=== PATIENT | female | born 1950 | race Caucasian/White ===

== ENCOUNTER 2019-07-04 21:02 | Observation (INO) ==
--- NOTE | 2019-07-04 21:04 | Emergency Department Note ---
Disposition Clinical Impression: Acute diverticulitis Disposition: Admitted As Inpatient Condition: Fair Referrals: Doris Moran, GROUTMAN [Primary Care Provider] - Forms: ED Satisfaction Letter Time of Disposition: 23:07 Nausea/Vomiting/Diarrhea HPI - General Chief complaint: ED Nausea/Vomiting/Diarrhea Stated complaint: n/v Time Seen by Provider: 07/04/19 21:04 Source: patient Mode of arrival: ambulatory Limitations: no limitations Nursing Notes Reviewed: Yes Vital Signs Reviewed: Yes - History of Present Illness HPI Narrative: 68-year-old female presents emergency room his had some upper respiratory tract infection was placed on antibiotic doxycycline is currently still taking at this time but is now developing severe lower abdominal pain and cramping down the left lower quadrant denies any black tarry or melanotic stools denies prior history of diverticular disease denies anything makes it better or anything makes it worse she is having blood in her urine she denies though any fever chills joint aches patient states the pains got worse here in the past couple of hours to the point where she is completely uncomfortable presents here to the emergency room. She has a blurred vision double vision loss vision chest pain chest pressure palpitations she states her cough and congestion which she was treated for earlier seems to be doing better she has numbness tingling weakness she denies though anything makes her feel better or anything makes her feel worse she states that she has no appetite she has got some malaise states that they just does not taste good in general patient eyes any additional complaints with complete entire review systems Pt Subjective Complaint: nausea, vomiting, abdominal pain Onset (ago): day(s) Description of emesis: food contents Associated Abdominal Pain: Yes If pain, Location of pain: LLQ Severity: severe Severity scale (1-10): 8 Quality: cramping, stabbing Consistency: constant Improves with: nothing Worsens with: nonthing Context: recent antibiotic use Associated symptoms: Reports: cough, loss of appetite, nausea/vomiting, weakness. Denies: myalgias, chest pain, diaphoresis, fever/chills, malaise, rash, dysuria, shortness of breath, syncope - Related Data Home Medications Medication Instructions Recorded Confirmed Albuterol Sulfate [Ventolin Hfa] 2 puff IH Q4H PRN 03/17/16 07/04/19 Cetirizine HCl [Zyrtec] 10 mg PO DAILY 03/17/16 07/04/19 Ergocalciferol (VITAMIN D2) 50,000 unit PO 2XW 03/17/16 07/04/19 [Vitamin D2 (50,000 UNIT)] Gemfibrozil [Lopid] 600 mg PO DAILY 03/17/16 07/04/19 Insulin ASPART [Novolog Flexpen] 45 unit SQ TIDWM 03/17/16 07/04/19 Levothyroxine [Synthroid] 125 mcg PO QAM 03/17/16 07/04/19 Losartan [Cozaar] 25 mg PO DAILY 03/17/16 07/04/19 Aspirin Enteric Coated [Aspirin EC] 81 mg PO DAILY 06/16/18 07/04/19 Folic Acid 1 mg PO DAILY 06/16/18 07/04/19 [place]-3/Dha/Epa/Fish Oil [Fish Oil 2 cap PO BID 06/16/18 07/04/19 1,000 mg Softgel] Previous Rx's Medication Instructions Recorded Acetaminophen [Pain Relief] 500 mg PO TID PRN #16 tablet 06/16/18 Allergies Allergy/AdvReac Type Severity Reaction Status Date / Time Penicillins [PCN] Allergy Hives Verified 01/22/16 20:05 Sulfa (Sulfonamide Allergy Hives Verified 01/22/16 20:05 Antibiotics) venom-honey bee Allergy Anaphylaxis Verified 01/22/16 20:05 [bee venom (honey bee)] All systems ED: reviewed and negative except as stated. Review of Systems: As Per HPI Constitutional: Denies: fever, chills, weakness Eyes: Denies: eye pain, eye discharge ENT ED: Denies: ear pain, throat pain Cardiovascular: Denies: chest pain, palpitations Respiratory: Denies: cough, dyspnea, wheezes Gastrointestinal: Reports: abdominal pain, nausea, vomiting Genitourinary: Reports: hematuria (?). Denies: urgency, dysuria, frequency Musculoskeletal: Denies: back pain, neck pain Integumentary: Denies: rash, abrasion Neurological: Denies: headache, weakness Psychiatric: Denies: anxiety, depression Endocrine: Denies: fatigue Hematological/Lymphatic: Denies: easy bleeding Allergic/Immunologic: Denies: facial swelling Past Medical History - Past Medical History Attestation: Yes The following information was validated with the patient. 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 - Social History Smoking Status: Current every day smoker Smokeless Tobacco Status: No Alcohol use: Reports: none Drug use: Reports: none Physical Exam - General Limitations: no limitations General appearance: alert, in no apparent distress, obese - Head Head exam: atraumatic, normocephalic, normal inspection - Eye Eye exam: Present: normal appearance, PERRL, EOMI - ENT ENT exam: normal exam, normal oropharynx, mucous membranes moist, TM's normal bilaterally, normal external ear exam - Neck Neck exam: Present: normal inspection, full ROM, trachea midline - Chest Chest inspection: Present: normal inspection, symmetric chest wall rise - Respiratory Respiratory exam: Present: normal lung sounds bilaterally - Cardiovascular Cardiovascular exam: Present: regular rate, normal rhythm, normal heart sounds - Abdominal Exam Abdominal exam: Present: soft, tenderness, distention, guarding, diminished bowel sounds. Absent: mass, pulsatile mass - Extremities Exam Extremities exam: Present: normal inspection, full ROM, normal capillary refill. Absent: tenderness, pedal edema, joint swelling, calf tenderness - Expanded Lower Extremity Exam Gait: observed and normal - Back Exam Back exam: Present: normal inspection, full ROM. Absent: muscle spasm - Neurological Exam Neurological exam: Present: alert, oriented X3, CN II-XII intact, normal gait - Psychiatric Psychiatric exam: Present: normal affect, normal mood - Skin Skin exam: Present: warm, dry, intact, normal color Course Course Narrative: Patient was immediately seen and evaluated examinations performed patient complaining of lower quadrant abdominal pain urinalysis and drug screen was obtained patient appears to be markedly uncomfortable. Patient was taken over to CAT scan upon return from CAT scan revealed film appears to be consistent with acute diverticulitis as a result she was started on antibiotics and fluids which did seem to help somewhat ease her pain and discomfort as result she was given some Zofran to control nausea and then have her admitted to the service of Dr. Langley when it showed that there was an uncomplicated diverticular disease patient is resting comfortably [facility] room. 49 Vital Signs Temperature 97.9 F 07/04/19 21:04 Pulse Rate 914 07/04/19 21:04 Respiratory Rate 18 07/04/19 21:04 Blood Pressure 109/70 07/04/19 21:04 O2 Sat by Pulse Oximetry 96 07/04/19 21:04 Temperature 97.9 F 07/04/19 21:04 Pulse Rate 60 07/04/19 22:34 Respiratory Rate 18 07/04/19 22:34 Blood Pressure 121/59 07/04/19 22:34 O2 Sat by Pulse Oximetry 94 07/04/19 22:34 Oxygen Delivery Oxygen Delivery Room Air Nausea/Vomiting/Diarrhea - MDM Narrative Medical decision making narrative: Diverticulitis versus diverticulosis versus versus: Mass - Differential Diagnosis Likely: gastroenteritis, dehydration - Medical Records Medical records reviewed: Yes I reviewed the patient's medical records. - Lab Data Lab results reviewed: Yes I reviewed the patient's lab results. Result diagrams: 07/04/19 21:37 07/04/19 21:37 Lab Results 07/04/19 07/04/19 07/04/19 Range/Units 21:37 21:37 21:37 WBC 16.4 H (4.3-11.1) K/mcL RBC 4.89 (3.82-4.97) M/mcL Hgb 15.2 (11.5-15.4) g/dL Hct 44.1 (35.3-44.9) % MCV 90.2 (83.0-100.0) fL MCH 31.1 (28.0-33.3) pg MCHC 34.5 (31.6-35.5) g/dL RDW 13.7 (11.5-14.5) % Plt Count 408 H (140-400) K/mcL MPV 11.9 (9.4-12.4) fL Immature Gran % 0.5 (0-4) % Seg Neutrophils % 43.4 % Lymphocytes % 48.0 % Monocytes % 4.8 % Eosinophils % 2.1 % Basophils % 1.2 % Neutrophils # 7.1 (1.6-8.9) K/mcL Lymphocytes # 7.9 H (0.6-4.6) K/mcL Monocytes # 0.8 (0.0-1.3) K/mcL Eosinophils # 0.3 (0.0-0.6) K/mcL Basophils # 0.2 (0.0-0.2) K/mcL Sodium 132 L (136-145) mEq/L Potassium 3.5 (3.5-5.1) mEq/L Chloride 99 (98-107) mEq/L Carbon Dioxide 20 L (23-29) mEq/L BUN 31 H (8-23) mg/dL Creatinine 1.09 (0.60-1.20) mg/dL Est GFR ( Amer) > 60 (> 60) Est GFR (Non-Af Amer) 50 L (> 60) BUN/Creatinine Ratio 28 H (6-26) Glucose 125 H (70-105) mg/dL Calculated Osmolality 282 (280-300) Lactic Acid (0.5-2.2) mmol/L Calcium 9.0 (8.6-10.3) mg/dL Total Bilirubin 0.5 (0.3-1.0) mg/dL AST 20 (13-39) Units/L ALT 16 (7-52) Units/L Alkaline Phosphatase 56 (34-104) Units/L Serum Total Protein 7.6 (6.4-8.9) g/dL Albumin 4.5 (3.5-5.7) g/dL Globulin 3.1 (2.4-3.5) g/dL Albumin/Globulin Ratio 1.5 (1.1-2.2) Urine Color Yellow (Yellow) Urine Clarity Slightly Cloudy A (Clear) Urine pH 5.5 (5.0-8.0) pH Units Ur Specific [place] 1.020 (1.010-1.025) Urine Protein Negative (Neg-Trace) mg/dL Urine Glucose (UA) 100 H (Normal) mg/dL Urine Ketones Negative (Negative) mg/dL Urine Blood Trace-intact H (Negative) Urine Nitrite Negative (Negative) Urine Bilirubin Small H (Negative) Urine Urobilinogen Normal (Normal) mg/dL Ur Leukocyte Esterase Negative (Negative) Ur Squamous Epith Cells Moderate H (None-Few) per lpf Ur Culture Indicated? NO (NO) 07/04/19 Range/Units 21:37 WBC (4.3-11.1) K/mcL RBC (3.82-4.97) M/mcL Hgb (11.5-15.4) g/dL Hct (35.3-44.9) % MCV (83.0-100.0) fL MCH (28.0-33.3) pg MCHC (31.6-35.5) g/dL RDW (11.5-14.5) % Plt Count (140-400) K/mcL MPV (9.4-12.4) fL Immature Gran % (0-4) % Seg Neutrophils % % Lymphocytes % % Monocytes % % Eosinophils % % Basophils % % Neutrophils # (1.6-8.9) K/mcL Lymphocytes # (0.6-4.6) K/mcL Monocytes # (0.0-1.3) K/mcL Eosinophils # (0.0-0.6) K/mcL Basophils # (0.0-0.2) K/mcL Sodium (136-145) mEq/L Potassium (3.5-5.1) mEq/L Chloride (98-107) mEq/L Carbon Dioxide (23-29) mEq/L BUN (8-23) mg/dL Creatinine (0.60-1.20) mg/dL Est GFR ( Amer) (> 60) Est GFR (Non-Af Amer) (> 60) BUN/Creatinine Ratio (6-26) Glucose (70-105) mg/dL Calculated Osmolality (280-300) Lactic Acid 2.0 (0.5-2.2) mmol/L Calcium (8.6-10.3) mg/dL Total Bilirubin (0.3-1.0) mg/dL AST (13-39) Units/L ALT (7-52) Units/L Alkaline Phosphatase (34-104) Units/L Serum Total Protein (6.4-8.9) g/dL Albumin (3.5-5.7) g/dL Globulin (2.4-3.5) g/dL Albumin/Globulin Ratio (1.1-2.2) Urine Color (Yellow) Urine Clarity (Clear) Urine pH (5.0-8.0) pH Units Ur Specific [place] (1.010-1.025) Urine Protein (Neg-Trace) mg/dL Urine Glucose (UA) (Normal) mg/dL Urine Ketones (Negative) mg/dL Urine Blood (Negative) Urine Nitrite (Negative) Urine Bilirubin (Negative) Urine Urobilinogen (Normal) mg/dL Ur Leukocyte Esterase (Negative) Ur Squamous Epith Cells (None-Few) per lpf Ur Culture Indicated? (NO) - Radiology Data Radiology results reviewed: Yes I reviewed the patient's radiology results. ITS Impressions Abdomen/Pelvis CT 07/04/19 22:09 IMPRESSION: Mild mural thickening of the sigmoid colon, with slight surrounding fat stranding, seen superimposed on a background of diverticulosis. Mild segmental colitis and mild uncomplicated diverticulitis are both considered. Moderate diffuse hepatic steatosis. D/ / Isaiah Nevarez MD / Isaiah Nevarez MD Interpreting Provider: Isaiah Nevarez MD Critical Care Time Critical Care Time: No
[2019-07-04] MEDS ORDERED: 0.9 % Sodium Chloride 1,000 ML IVC ONE (21:35)
[2019-07-04] MEDS ORDERED: Ondansetron 4 MG/2 ML VIAL IVP ONE (21:35)
[2019-07-04 21:47] LABS: Basophils # 0.2 K/mcL (0.0-0.2); Basophils % 1.2 %; Eosinophils # 0.3 K/mcL (0.0-0.6); Eosinophils % 2.1 %; Hematocrit 44.1 % (35.3-44.9); Hemoglobin 15.2 g/dL (11.5-15.4); Immature Granulocytes % 0.5 % (0-4); Lymphocytes # 7.9 K/mcL (0.6-4.6); Mean Corpuscular HGB Conc 34.5 g/dL (31.6-35.5); Mean Corpuscular Hemoglobin 31.1 pg (28.0-33.3); Mean Corpuscular Volume 90.2 fL (83.0-100.0); Mean Platelet Volume 11.9 fL (9.4-12.4); Monocytes # 0.8 K/mcL (0.0-1.3); Monocytes % 4.8 %; Neutrophils # 7.1 K/mcL (1.6-8.9); Platelet Count 408 K/mcL (140-400); Red Blood Count 4.89 M/mcL (3.82-4.97); Red Cell Distribution Width 13.7 % (11.5-14.5); Segmented Neutrophils % 43.4 %; White Blood Count 16.4 K/mcL (4.3-11.1)
[2019-07-04 21:50] LABS: Bilirubin,Urine Small (Negative); Blood,Urine Trace-intact (Negative); Clarity,Urine Slightly Cloudy (Clear); Color,Urine Yellow (Yellow); Glucose,Urine (UA) 100 mg/dL (Normal); Ketones,Urine Negative (Negative); Leukocyte Esterase,Urine Negative (Negative); Nitrite,Urine Negative (Negative); PH,Urine 5.5 pH Units (5.0-8.0); Protein,Urine Negative (Neg-Trace); Urobilinogen,Urine Normal (Normal)
[2019-07-04 22:02] LABS: Squamous Epithelial Cell,Urine Moderate per lpf (None-Few)
[2019-07-04] MEDS ORDERED: MetroNIDAZOLE 500 MG/100 ML 500 MG/100 ML BAG IVPB ONE (22:09)
[2019-07-04 22:15] LABS: Alanine Aminotransferase 16 Units/L (7-52); Albumin 4.5 g/dL (3.5-5.7); Albumin/Globulin Ratio 1.5 (1.1-2.2); Alkaline Phosphatase 56 Units/L (34-104); Aspartate Amino Transferase 20 Units/L (13-39); BUN/Creatinine Ratio 28 (6-26); Bilirubin,Total 0.5 mg/dL (0.3-1.0); Blood Urea Nitrogen 31 mg/dL (8-23); Carbon Dioxide 20 mEq/L (23-29); Chloride 99 mEq/L (98-107); Globulin 3.1 g/dL (2.4-3.5); Glucose 125 mg/dL (70-105); Osmolality,Calculated 282 (280-300); Potassium 3.5 mEq/L (3.5-5.1); Sodium 132 mEq/L (136-145); Total Protein 7.6 g/dL (6.4-8.9); eGFR For African Americans > 60 (> 60); eGFR For Non-African Americans 50 (> 60)
[2019-07-04] MEDS ORDERED: 0.9 % Sodium Chloride 1,000 ML IVC SCH (22:15)
[2019-07-05] MEDS ORDERED: Ondansetron 4 MG/2 ML VIAL IVP PRN (00:16)
[2019-07-05] MEDS ORDERED: *HR* HYDROcodone/Acet 5/325 mg TABLET PO PRN (00:16)
[2019-07-05] MEDS ORDERED: Naloxone 0.4 MG/ML INJ IVP PRN (00:16)
[2019-07-05] MEDS ORDERED: *HR* Promethazine 25 MG/ML VIAL IVP PRN (00:16)
[2019-07-05] MEDS ORDERED: D5% in Water 1,000 ML IVC PRN (00:23)
[2019-07-05] MEDS ORDERED: Dextrose Gel 15 GM/37.5 ML TUBE PO PRN ×2 (00:23)
[2019-07-05] MEDS ORDERED: *HR* Dextrose 50 % in Water (Syg) 50 ML SYRINGE IVP PRN (00:23)
[2019-07-05] MEDS: 0.9 % Sodium Chloride 1,000 ML IVC SCH ×2 (01:06→07:37)
[2019-07-05 06:28] LABS: Basophils # 0.1 K/mcL (0.0-0.2); Basophils % 0.6 %; Eosinophils # 0.1 K/mcL (0.0-0.6); Eosinophils % 0.6 %; Hematocrit 39.1 % (35.3-44.9); Hemoglobin 13.3 g/dL (11.5-15.4); Immature Granulocytes % 0.6 % (0-4); Lymphocytes % 25.8 %; Mean Corpuscular Hemoglobin 31.2 pg (28.0-33.3); Mean Corpuscular Volume 91.8 fL (83.0-100.0); Mean Platelet Volume 12.2 fL (9.4-12.4); Monocytes # 0.7 K/mcL (0.0-1.3); Monocytes % 3.5 %; Neutrophils # 13.4 K/mcL (1.6-8.9); Platelet Count 350 K/mcL (140-400); Red Blood Count 4.26 M/mcL (3.82-4.97); Red Cell Distribution Width 13.6 % (11.5-14.5); Segmented Neutrophils % 68.9 %; White Blood Count 19.5 K/mcL (4.3-11.1)
[2019-07-05 06:42] LABS: BUN/Creatinine Ratio 26 (6-26); Blood Urea Nitrogen 25 mg/dL (8-23); Calcium 7.7 mg/dL (8.6-10.3); Carbon Dioxide 20 mEq/L (23-29); Chloride 102 mEq/L (98-107); Glucose 249 mg/dL (70-105); Osmolality,Calculated 289 (280-300); Sodium 133 mEq/L (136-145); eGFR For African Americans > 60 (> 60); eGFR For Non-African Americans 56 (> 60)
[2019-07-05] MEDS ORDERED: Ergocalciferol (VIT D2) 50,000 UNIT (1.25MG) CAP PO SCH (09:00)
[2019-07-05] MEDS: Folic Acid 1 MG TABLET PO SCH (09:52)
[2019-07-05] MEDS: Aspirin Enteric Coated 81 MG Tablet PO SCH (09:52)
[2019-07-05] MEDS: Loratadine 10 MG TABLET PO SCH (09:52)
[2019-07-05] MEDS: Cholecalciferol (D-3) 1,000 UNIT (25MCG) TABLET PO SCH (10:06)
[2019-07-05] MEDS ORDERED: *HR* Dextrose 50 % in Water (Vial) 50 ML VIAL IVP PRN (12:45)
--- NOTE | 2019-07-05 15:59 | Internal Med History&Physical ---
Date of Encounter: 07/05/19 Time of Encounter: 15:15 Assessment and Plan (1) Acute diverticulitis Current visit: Yes Status: Acute She has been started on IV Cipro and Flagyl through emergency room. Lactobacillus will be added. (2) Hypertension Current visit: Yes Status: Chronic Continue losartan Qualifiers: Hypertension type: essential hypertension Qualified Code(s): I10 - Essential (primary) hypertension (3) DM type 2 (diabetes mellitus, type 2) Current visit: Yes Status: Chronic Check hemoglobin A1c in a.m. Continue Levemir and Accu-Cheks with SSI. Qualifiers: Diabetes mellitus retirement insulin use: with retirement use Diabetes mellitus complication status: without complication Qualified Code(s): E11.9 - Type 2 diabetes mellitus without complications; Z79.4 - moth exterminator (current) use of insulin (4) Hypothyroidism Current visit: Yes Status: Chronic TSH was 1.223 on 05/22/2018. Recheck in a.m. Qualifiers: Hypothyroidism type: unspecified Qualified Code(s): E03.9 - Hypothyroidism, unspecified (5) Hyperlipidemia Current visit: Yes Status: Chronic Continue Lopid. Qualifiers: Hyperlipidemia type: unspecified Qualified Code(s): E78.5 - Hyperlipidemia, unspecified (6) Azotemia Current visit: Yes Status: Acute Suspect due in part to dehydration from vomiting. IV fluids have been ordered and creatinine has decreased to 0.98 today with estimated GFR 56. Continue IV fluids and recheck labs in a.m. Internal Medicine - H&P: HPI Chief complaint: Vomiting, diverticulitis. Admitted From: Emergency Dept Plans for Post Hospital Care: Home History of present illness: Ms. Thomas is a 68 year old female who came to emergency room stating she had 2 episodes of nonbloody vomiting followed by dry heaves onset morning of admission. There was mid and lower abdominal discomfort. She denies diarrhea fevers or chills. When she did not improve she came to emergency room and was found to have evidence of diverticulitis and sigmoid colitis on abdominal CT scan. She was admitted to Medr floor for ongoing care needs. GI history is pertinent for cholecystectomy. She denies disorders of her liver or exocrine pancreas. She reports being treated for respiratory infection approximately 2 weeks ago with doxycycline, steroids, and Tessalon Perles. She reports minimal residual cough. Past Med Surg Social Fam HX - Past Medical History Medical history: asthma, diabetes, GERD, hyperlipidemia, hypertension, thyroid disease Additional medical history: diabetes mellitus. HTN. Hypothyroidism. tobacco dependency Psychiatric history: no psych history - Past Surgical History Surgical History: cholecystectomy, hysterectomy Additional surgical history: bladder tuck. NILESH LT AND RT ROTATOR CUFF REPAIR. NILESH CARAPL TUNNEL RELEASE. CYST REMOVED RT CHEEK AND BACK OF HEAD - Social History Smoking Status: Current every day smoker Smokeless Tobacco Status: No Alcohol use: none Drug use: none - Family History Father Living Status: Cause of : STROKE Hx Family Endocrine Disorder: Yes (DIABETES) Mother Living Status: Cause of : STROKE Internal Medicine - H&P: Meds Albuterol Sulfate [Ventolin Hfa] 2 puff IH Q4H PRN 03/17/16 [History] Cetirizine HCl [Zyrtec] 10 mg PO DAILY 03/17/16 [History] Ergocalciferol (VITAMIN D2) [Vitamin D2 (50,000 UNIT)] 50,000 unit PO 2XW 03/17/16 [History] Gemfibrozil [Lopid] 600 mg PO DAILY 03/17/16 [History] Insulin ASPART [Novolog Flexpen] 45 unit SQ TIDWM 03/17/16 [History] Levothyroxine [Synthroid] 125 mcg PO QAM 03/17/16 [History] Losartan [Cozaar] 25 mg PO DAILY 03/17/16 [History] Acetaminophen [Pain Relief] 500 mg PO TID PRN #16 tablet 06/16/18 [Rx] Aspirin Enteric Coated [Aspirin EC] 81 mg PO DAILY 06/16/18 [History] Folic Acid 1 mg PO DAILY 06/16/18 [History] [place]-3/Dha/Epa/Fish Oil [Fish Oil 1,000 mg Softgel] 2 cap PO BID 06/16/18 [ History] Insulin DETEMIR [Levemir] 60 unit SQ HS 07/05/19 [History] Allergy/AdvReac Type Severity Reaction Status Date / Time Penicillins [PCN] Allergy Hives Verified 01/22/16 20:05 Sulfa (Sulfonamide Allergy Hives Verified 01/22/16 20:05 Antibiotics) venom-honey bee Allergy Anaphylaxis Verified 01/22/16 20:05 [bee venom (honey bee)] All Systems PM: A 10-system review of systems was performed and is negative for pertinent findings except as documented above in the HPI. Review of systems: Gen.: She states her weight has been stable for several months Cardiovascular: She has history of hypertension but denies [place] heart failure angina DVT or pulmonary embolus Respiratory: She smoked since age 34 up to 2 packs per day. PFTs 06/02/2018 showed FVC 81% predicted, FEV1 90% predicted, FEV1/FVC 84%, MVV 45% predicted, RV 114% predicted, and DLCO (corrected) 84% predicted. There was no significant change in FEV1 or FVC postbronchodilator. She claims a diagnosis of asthma. GI: As per history of present illness : She denies hematuria dysuria or kidney stones Endocrine: She was diagnosed with DM 2 approximately age 47. She has hypothyroidism and hyperlipidemia Hematology/oncology: She denies blood disorders cancers or anemia Psychiatric: She denies anxiety depression or other mental health issues [place] skeletal: She reports arthritis pains. She denies gout or other bone joint or muscle disorders. - Constitutional Vitals: Temp Pulse Resp BP Pulse Ox 98.6 F 63 16 130/70 98 07/05/19 14:20 07/05/19 14:20 07/05/19 14:20 07/05/19 14:20 07/05/19 14:20 Exam: Gen.: She is a well-developed well-nourished female resting comfortably in bed who appears in no acute distress HEENT: Head is atraumatic and normal cephalic. Eyes: EOMI. There is no scleral icterus. Mouth: Mucosa is moist. Neck: Supple and nontender. There is no thyromegaly or adenopathy noted. Heart: Regular without murmurs gallops or ectopics Lungs: No wheezes or crackles are heard. Abdomen: Bowel sounds are present but diminished. No masses or guarding are noted. She claims there is mild "soreness" to light palpation. Extremities: There is no cyanosis edema or clubbing noted. Dorsalis pedis and posterior tibial pulses are trace to 1+ palpable bilaterally. Neurologic: Mental status: She is talkative and a good historian. Cranial nerves: Smile is symmetric. Forehead wrinkles bilaterally. Tongue protrudes midline. EOMI. Motor: There is no pronator drift. Cerebellar: Finger to nose is intact bilaterally. Skin: Warm and dry Internal Med - H&P Results - Labs CBC & Chem 7: 07/05/19 05:42 07/05/19 05:42 Labs: Short CBC 07/04/19 07/05/19 Range/Units 21:37 05:42 WBC 16.4 H 19.5 H (4.3-11.1) K/mcL Hgb 15.2 13.3 D (11.5-15.4) g/dL Hct 44.1 39.1 (35.3-44.9) % Plt Count 408 H 350 (140-400) K/mcL Neutrophils # 7.1 13.4 H (1.6-8.9) K/mcL BMP 07/04/19 07/05/19 21:37 05:42 Sodium 132 L 133 L Potassium 3.5 4.0 Chloride 99 102 Carbon Dioxide 20 L 20 L BUN 31 H 25 H Creatinine 1.09 0.98 Glucose 125 H 249 H Calcium 9.0 7.7 L Liver Function 07/04/19 Range/Units 21:37 Total Bilirubin 0.5 (0.3-1.0) mg/dL AST 20 (13-39) Units/L ALT 16 (7-52) Units/L Alkaline Phosphatase 56 (34-104) Units/L Albumin 4.5 (3.5-5.7) g/dL Urine 07/04/19 Range/Units 21:37 Urine Color Yellow (Yellow) Urine Clarity Slightly Cloudy A (Clear) Urine pH 5.5 (5.0-8.0) pH Units Ur Specific [place] 1.020 (1.010-1.025) Urine Protein Negative (Neg-Trace) mg/dL Urine Glucose (UA) 100 H (Normal) mg/dL - Impressions ITS Impressions Abdomen/Pelvis CT 07/04/19 22:09 IMPRESSION: Mild mural thickening of the sigmoid colon, with slight surrounding fat stranding, seen superimposed on a background of diverticulosis. Mild segmental colitis and mild uncomplicated diverticulitis are both considered. Moderate diffuse hepatic steatosis. D/ / Isaiah Nevarez MD / Isaiah Nevarez MD Interpreting Provider: Isaiah Nevarez MD
[2019-07-05] MEDS: Insulin LISPRO 300 UNITS/3 ML VIAL SQ SCH ×3 (16:43→20:41)
[2019-07-05] MEDS: 0.9 % Sodium Chloride w KCl 20 MEQ/1,000 ML MLS IVC SCH (16:46)
[2019-07-05] MEDS: Insulin DETEMIR 100 UNIT/ML X5UNITS SQ SCH (20:40)
[2019-07-06 05:21] LABS: Basophils # 0.1 K/mcL (0.0-0.2); Basophils % 0.8 %; Eosinophils # 0.4 K/mcL (0.0-0.6); Hematocrit 36.3 % (35.3-44.9); Hemoglobin 11.9 g/dL (11.5-15.4); Immature Granulocytes % 0.3 % (0-4); Lymphocytes # 5.4 K/mcL (0.6-4.6); Lymphocytes % 45.4 %; Mean Corpuscular HGB Conc 32.8 g/dL (31.6-35.5); Mean Corpuscular Hemoglobin 30.8 pg (28.0-33.3); Mean Platelet Volume 11.9 fL (9.4-12.4); Monocytes # 0.7 K/mcL (0.0-1.3); Platelet Count 281 K/mcL (140-400); Red Blood Count 3.86 M/mcL (3.82-4.97); Red Cell Distribution Width 13.6 % (11.5-14.5); Segmented Neutrophils % 44.5 %; White Blood Count 11.8 K/mcL (4.3-11.1)
[2019-07-06 05:28] LABS: Neutrophils # 5.3 K/mcL (1.6-8.9)
[2019-07-06 05:43] LABS: Alanine Aminotransferase 11 Units/L (7-52); Albumin 3.6 g/dL (3.5-5.7); Albumin/Globulin Ratio 1.5 (1.1-2.2); Alkaline Phosphatase 42 Units/L (34-104); Aspartate Amino Transferase 16 Units/L (13-39); BUN/Creatinine Ratio 16 (6-26); Bilirubin,Total 0.6 mg/dL (0.3-1.0); Blood Urea Nitrogen 15 mg/dL (8-23); Calcium 7.3 mg/dL (8.6-10.3); Carbon Dioxide 22 mEq/L (23-29); Chloride 107 mEq/L (98-107); Globulin 2.4 g/dL (2.4-3.5); Glucose 237 mg/dL (70-105); Magnesium 1.7 mg/dL (1.6-2.6); Osmolality,Calculated 293 (280-300); Phosphorous 1.3 mg/dL (2.7-4.5); Potassium 4.2 mEq/L (3.5-5.1); Sodium 137 mEq/L (136-145); eGFR For African Americans > 60 (> 60); eGFR For Non-African Americans 57 (> 60)
[2019-07-06] MEDS: 0.9 % Sodium Chloride w KCl 20 MEQ/1,000 ML MLS IVC SCH ×2 (06:35→20:52)
[2019-07-06] MEDS: Loratadine 10 MG TABLET PO SCH (09:07)
[2019-07-06] MEDS: Folic Acid 1 MG TABLET PO SCH (09:07)
[2019-07-06] MEDS: Aspirin Enteric Coated 81 MG Tablet PO SCH (09:07)
[2019-07-06] MEDS: Insulin LISPRO 300 UNITS/3 ML VIAL SQ SCH ×4 (09:08→20:51)
[2019-07-06] MEDS: Cholecalciferol (D-3) 1,000 UNIT (25MCG) TABLET PO SCH (09:13)
--- NOTE | 2019-07-06 11:06 | Internal Med Progress Note ---
Date of Encounter: 07/06/19 Time of Encounter: 10:55 - Assessment and plan (1) Acute diverticulitis Current Visit: Yes Status: Acute Assessment and plan: July 06. Continue IV Flagyl and Cipro with lactobacillus. Advance diet. (2) Hypertension Current Visit: Yes Status: Chronic Assessment and plan: July 06. Continue losartan. Qualifiers: Hypertension type: essential hypertension Qualified Code(s): I10 - Essential (primary) hypertension (3) DM type 2 (diabetes mellitus, type 2) Current Visit: Yes Status: Chronic Assessment and plan: July 06. Hemoglobin A1c has been ordered. Qualifiers: Diabetes mellitus penitentiary insulin use: with termite helper use Diabetes mellitus complication status: without complication Qualified Code(s): E11.9 - Type 2 diabetes mellitus without complications; Z79.4 - penitentiary (current) use of insulin (4) Hypothyroidism Current Visit: Yes Status: Chronic Assessment and plan: July 06. TSH significantly elevated at 40.445. She reports she has missed many doses of Synthroid due to forgetting to take it. Qualifiers: Hypothyroidism type: unspecified Qualified Code(s): E03.9 - Hypothyroidism, unspecified (5) Hyperlipidemia Current Visit: Yes Status: Chronic Assessment and plan: July 06. Continue Lopid. Qualifiers: Hyperlipidemia type: unspecified Qualified Code(s): E78.5 - Hyperlipidemia, unspecified (6) Azotemia Current Visit: Yes Status: Acute Assessment and plan: July 06. BUN and creatinine normal at 15 and 0.96 respectively with estimated GFR 57. Continue IV fluids and recheck labs in a.m. (7) Hypophosphatemia Current Visit: Yes Status: Acute Assessment and plan: July 06. Phosphorus level low at 1.3. Suspect due to vomiting. Neutra-Phos will be ordered and labs monitored. (8) Hypocalcemia Current Visit: Yes Status: Acute Assessment and plan: July 06. Calcium level decreased to 7.3 with albumin 3.6. Calcium level was 9.0 on admission with albumin 4.5. Calcium gluconate will be given. Recheck labs in a.m. - Subjective Interval history: July 06. She has no new complaints. She has less abdominal discomfort. - Constitutional Vitals: Temp Pulse Resp BP Pulse Ox 98.1 F 69 20 124/68 97 07/06/19 07:31 07/06/19 07:31 07/06/19 07:31 07/06/19 07:31 07/06/19 07:31 Exam: She is resting comfortably in bed and appears in no acute distress. There is mild left lower quadrant abdominal tenderness to palpation. Bowel sounds are present. Her affect is bright and cheerful. I reviewed her medications and lab results. Internal Medicine: Result - Labs CBC & Chem 7: 07/06/19 04:54 07/06/19 04:54 Labs: Short CBC 07/06/19 Range/Units 04:54 WBC 11.8 H (4.3-11.1) K/mcL Hgb 11.9 (11.5-15.4) g/dL Hct 36.3 (35.3-44.9) % Plt Count 281 (140-400) K/mcL Neutrophils # 5.3 (1.6-8.9) K/mcL BMP 07/06/19 04:54 Sodium 137 Potassium 4.2 Chloride 107 Carbon Dioxide 22 L BUN 15 Creatinine 0.96 Glucose 237 H Calcium 7.3 L Liver Function 07/06/19 Range/Units 04:54 Total Bilirubin 0.6 (0.3-1.0) mg/dL AST 16 (13-39) Units/L ALT 11 (7-52) Units/L Alkaline Phosphatase 42 (34-104) Units/L Albumin 3.6 (3.5-5.7) g/dL Consult Discharge Plan - Plan Referrals: Doris Moran, SHE[facility]OCKER [Primary Care Provider] - 1 week
[2019-07-06] MEDS: MetroNIDAZOLE 500 MG/100 ML 500 MG/100 ML BAG IVPB SCH (15:39)
[2019-07-06 17:38] LABS: Estimated Average Glucose 229 mg/dl
[2019-07-06] MEDS ORDERED: Mag Hydrox/Al Hydrox/Simeth 30 ML UDC PO PRN (20:41)
[2019-07-06] MEDS: Insulin DETEMIR 100 UNIT/ML X5UNITS SQ SCH (20:51)
[2019-07-07] MEDS: MetroNIDAZOLE 500 MG/100 ML 500 MG/100 ML BAG IVPB SCH ×2 (00:32→08:56)
[2019-07-07 07:09] VITALS: BP 103/62
[2019-07-07 07:38] LABS: Basophils # 0.1 K/mcL (0.0-0.2); Basophils % 0.8 %; Eosinophils # 0.5 K/mcL (0.0-0.6); Eosinophils % 4.3 %; Hematocrit 34.7 % (35.3-44.9); Hemoglobin 11.4 g/dL (11.5-15.4); Immature Granulocytes % 0.4 % (0-4); Lymphocytes # 5.5 K/mcL (0.6-4.6); Lymphocytes % 50.3 %; Mean Corpuscular HGB Conc 32.9 g/dL (31.6-35.5); Mean Corpuscular Hemoglobin 30.8 pg (28.0-33.3); Mean Corpuscular Volume 93.8 fL (83.0-100.0); Mean Platelet Volume 11.6 fL (9.4-12.4); Monocytes # 0.7 K/mcL (0.0-1.3); Monocytes % 6.4 %; Neutrophils # 4.2 K/mcL (1.6-8.9); Platelet Count 273 K/mcL (140-400); Red Cell Distribution Width 13.6 % (11.5-14.5); Segmented Neutrophils % 37.8 %
[2019-07-07 08:03] LABS: Alanine Aminotransferase 11 Units/L (7-52); Albumin 3.7 g/dL (3.5-5.7); Albumin/Globulin Ratio 1.4 (1.1-2.2); Alkaline Phosphatase 48 Units/L (34-104); Aspartate Amino Transferase 18 Units/L (13-39); BUN/Creatinine Ratio 14 (6-26); Bilirubin,Total 0.5 mg/dL (0.3-1.0); Blood Urea Nitrogen 12 mg/dL (8-23); Calcium 7.8 mg/dL (8.6-10.3); Carbon Dioxide 24 mEq/L (23-29); Chloride 108 mEq/L (98-107); Globulin 2.6 g/dL (2.4-3.5); Glucose 113 mg/dL (70-105); Osmolality,Calculated 287 (280-300); Phosphorous 1.6 mg/dL (2.7-4.5); Potassium 4.2 mEq/L (3.5-5.1); Sodium 138 mEq/L (136-145); Total Protein 6.3 g/dL (6.4-8.9); eGFR For African Americans > 60 (> 60); eGFR For Non-African Americans > 60 (> 60)
[2019-07-07] MEDS: Insulin LISPRO 300 UNITS/3 ML VIAL SQ SCH (08:58)
[2019-07-07] MEDS: Folic Acid 1 MG TABLET PO SCH (08:58)
[2019-07-07] MEDS: Aspirin Enteric Coated 81 MG Tablet PO SCH (08:58)
[2019-07-07] MEDS: Cholecalciferol (D-3) 1,000 UNIT (25MCG) TABLET PO SCH (08:59)
--- NOTE | 2019-07-07 09:08 | Discharge Summary ---
Date of Encounter: 07/07/19 Time of Encounter: 08:58 - Discharge Diagnosis (1) Acute diverticulitis Priority: Primary Status: Acute (2) Hypertension Priority: Secondary Status: Chronic Qualifiers: Hypertension type: essential hypertension Qualified Code(s): I10 - Essential (primary) hypertension (3) DM type 2 (diabetes mellitus, type 2) Priority: Secondary Status: Chronic Qualifiers: Diabetes mellitus alf insulin use: with termite control representative use Diabetes mellitus complication status: without complication Qualified Code(s): E11.9 - Type 2 diabetes mellitus without complications; Z79.4 - halfway (current) use of insulin (4) Hypothyroidism Priority: Secondary Status: Chronic Qualifiers: Hypothyroidism type: unspecified Qualified Code(s): E03.9 - Hypothyroidism, unspecified (5) Hyperlipidemia Priority: Secondary Status: Chronic Qualifiers: Hyperlipidemia type: unspecified Qualified Code(s): E78.5 - Hyperlipidemia, unspecified (6) Azotemia Priority: Secondary Status: Resolved (7) Hypophosphatemia Priority: Secondary Status: Acute (8) Hypocalcemia Priority: Secondary Status: Acute Hospital course: Ms. Thomas is a 68 year old female who came to emergency room stating she had 2 episodes of nonbloody vomiting followed by dry heaves onset morning of admission. There was mid and lower abdominal discomfort. She denies diarrhea fevers or chills. When she did not improve she came to emergency room and was found to have evidence of diverticulitis and sigmoid colitis on abdominal CT scan. She was admitted to [facility] floor for ongoing care needs. I saw her on July 05 and performed a history and physical. She was started on IV Cipro and Flagyl through emergency room. Lactobacillus was added. She had gradual clinical improvement with normalization of WBC on July 07. She was able to tolerate adequate amount of food and fluid intake. Abdominal pain completely resolved by day of discharge. She will continue with oral antibiotic and probiotic for 2 additional days at discharge. IV fluids were given and azotemia resolved with BUN and creatinine decreasing to 12 and 0.87 respectively by day of discharge with estimated GFR> 60. Her PCP can monitor renal indices. Calcium level decreased to 7.3 on July 06 with albumin 3.6. She was given IV calcium gluconate and calcium level improved to 7.8 by the following day. She will continue with oral calcium carbonate supplements at home and her PCP can monitor. Phosphorus level returned low at 1.3. She was started on oral Neutra-Phos and will continue this at discharge for 5 days. Her PCP can monitor. TSH returned significantly elevated at 40.445. Patient admitted she had missed many doses of levothyroxine. I encouraged her to take Rx as prescribed. Her PCP can order follow-up labs to monitor compliance. Hemoglobin A1c returned elevated at 9.6 %. Accu-Cheks remained stable during hospitalization. Her PCP can monitor and determine if change in diabetic Rx is indicated. She will be discharged home and follow with her PCP Doris Moran CNP within 1 week. - Time Spent with Patient Total time spent providing and/or coordinating discharge services: - Discharge Medications Prescriptions: New Calcium Carbonate 500 mg PO BID #10 tablet Ciprofloxacin [Cipro] 500 mg PO BID #4 tablet Lactobacillus [Culturelle] 1 each PO BID #4 cap.sprink metroNIDAZOLE [Flagyl] 500 mg PO Q8H #6 tablet Phos-NaK [Neutra-Phos] 2 each PO BID #12 powd.pack Continued Losartan [Cozaar] 25 mg PO DAILY Levothyroxine [Synthroid] 125 mcg PO QAM Insulin ASPART [Novolog Flexpen] 45 unit SQ TIDWM Gemfibrozil [Lopid] 600 mg PO DAILY Ergocalciferol (VITAMIN D2) [Vitamin D2 (50,000 UNIT)] 50,000 unit PO 2XW Albuterol Sulfate [Ventolin Hfa] 2 puff IH Q4H PRN PRN Reason: Shortness Of Breath Folic Acid 1 mg PO DAILY Aspirin Enteric Coated [Aspirin EC] 81 mg PO DAILY [place]-3/Dha/Epa/Fish Oil [Fish Oil 1,000 mg Softgel] 2 cap PO BID Acetaminophen [Pain Relief] 500 mg PO TID PRN #16 tablet PRN Reason: Pain Insulin DETEMIR [Levemir] 60 unit SQ HS Changed Cetirizine HCl [Zyrtec] 10 mg PO DAILY PRN #0 PRN Reason: Allergy Symptoms Home Medications: Albuterol Sulfate [Ventolin Hfa] 2 puff IH Q4H PRN 03/17/16 [History] Ergocalciferol (VITAMIN D2) [Vitamin D2 (50,000 UNIT)] 50,000 unit PO 2XW 03/17/16 [History] Gemfibrozil [Lopid] 600 mg PO DAILY 03/17/16 [History] Insulin ASPART [Novolog Flexpen] 45 unit SQ TIDWM 03/17/16 [History] Levothyroxine [Synthroid] 125 mcg PO QAM 03/17/16 [History] Losartan [Cozaar] 25 mg PO DAILY 03/17/16 [History] Acetaminophen [Pain Relief] 500 mg PO TID PRN #16 tablet 06/16/18 [Rx] Aspirin Enteric Coated [Aspirin EC] 81 mg PO DAILY 06/16/18 [History] Folic Acid 1 mg PO DAILY 06/16/18 [History] [place]-3/Dha/Epa/Fish Oil [Fish Oil 1,000 mg Softgel] 2 cap PO BID 06/16/18 [History] Insulin DETEMIR [Levemir] 60 unit SQ HS 07/05/19 [History] Calcium Carbonate 500 mg PO BID #10 tablet 07/07/19 [Rx] Cetirizine HCl [Zyrtec] 10 mg PO DAILY PRN #0 07/07/19 [Rx] Ciprofloxacin [Cipro] 500 mg PO BID #4 tablet 07/07/19 [Rx] Lactobacillus [Culturelle] 1 each PO BID #4 cap.sprink 07/07/19 [Rx] Phos-NaK [Neutra-Phos] 2 each PO BID #12 powd.pack 07/07/19 [Rx] metroNIDAZOLE [Flagyl] 500 mg PO Q8H #6 tablet 07/07/19 [Rx] Allergies/Adverse Reactions: Allergy/AdvReac Type Severity Reaction Status Date / Time Penicillins [PCN] Allergy Hives Verified 01/22/16 20:05 Sulfa (Sulfonamide Allergy Hives Verified 01/22/16 20:05 Antibiotics) venom-honey bee Allergy Anaphylaxis Verified 01/22/16 20:05 [bee venom (honey bee)] Date of admission: 07/04/19 23:42 Primary care physician: Doris Moran CNP - Constitutional Vitals: Temp Pulse Resp BP Pulse Ox 97.6 F 66 16 103/62 98 07/07/19 07:03 07/07/19 07:03 07/07/19 07:03 07/07/19 07:03 07/07/19 07:03 - Patient Status Disposition: Home, Self-Care Condition: Fair - Discharge Instructions Follow Up With: Doris Moran, [employer] [Primary Care Provider] - 1 week - Diet and Activity Activity: resume usual activities as tolerated Diet: diabetic diet
== END 2019-07-07 10:03 | disposition home or self-care (01) ==
LOC: EMEROOPIK 21:02 → INPPIK 21:02
PROVIDERS: ADMIT Internal Medicine; ATTEND Internal Medicine